=== PATIENT | female | born 1945 | race African-American/Black ===

== ENCOUNTER 2023-09-28 06:56 | Day surgery (SDC) | payer OTHER, MEDICAID ==
[~2023-09-28] VITALS: Ht 157.5 cm; Wt 77.1 kg
[2023-09-28] MEDS ORDERED: LIDOCAINE/EPI 1% 1:100000 20 ML VIAL ONE (08:44)
[2023-09-28] MEDS ORDERED: fentaNYL CITRATE/PF 100 MCG/2 ML AMP ONE ×2 (08:51→11:01)
[2023-09-28] MEDS ORDERED: MIDAZOLAM HCL 2 MG/2 ML VIAL (VERSED) ONE (08:51)
[2023-09-28] MEDS ORDERED: ACETAMINOPHEN I.V. 1000 MG 100 ML IV ONE (08:51)
[2023-09-28] MEDS ORDERED: ONDANSETRON HCL 4 MG/2 ML VIAL IVP PRN (09:45)
[2023-09-28] MEDS ORDERED: LR 1,000 ML IV ONE (09:45)
[2023-09-28] MEDS: HYDROmorphone 1 MG/ML INJ. CARTRIDGE IVP PRN (10:20)
[2023-09-28] MEDS ORDERED: HYDROmorphone 1 MG/ML INJ. CARTRIDGE ONE ×2 (10:22→10:43)
[2023-09-28] MEDS: fentaNYL CITRATE/PF 100 MCG/2 ML AMP IVP PRN ×2 (11:01→11:27)
[2023-09-28 15:23] VITALS: O2SAT 98
[2023-09-28 15:56] VITALS: BP_SYST 149; PULSE 87; RESP 18; TEMP 97
== END 2023-09-28 14:02 | disposition home or self-care (01) ==
LOC: SDS 06:56 → SMU 06:57 → SDS 14:02
PROVIDERS: ATTEND Otolaryngology
DX: J31.0 Chronic rhinitis (principal); J34.89 Other specified disorders of nose and nasal sinuses; R09.82 Postnasal drip; I10 Essential (primary) hypertension; E78.5 Hyperlipidemia, unspecified; E11.40 Type 2 diabetes mellitus with diabetic neuropathy, unspecified; K21.9 Gastro-esophageal reflux disease without esophagitis; M06.9 Rheumatoid arthritis, unspecified; Z90.49 Acquired absence of other specified parts of digestive tract; Z96.642 Presence of left artificial hip joint; Z98.890 Other specified postprocedural states; Z79.899 Other long term (current) drug therapy
CPT/HCPCS: 87081; 31243; 82948; J3490; J1720; J3465; J2405; J2370; J2704; J3010; J1170; J7120; J0131